=== PATIENT | male | born 1975 | race Caucasian/White ===

== ENCOUNTER 2025-03-24 14:05 | Emergency (ER) | payer MEDICAID ==
[~2025-03-24] VITALS: Ht 167.6 cm; Wt 72.0 kg
[2025-03-24 14:09] VITALS: O2SAT 97
[2025-03-24] MEDS: ACETAMINOPHEN 500MG TABLET PO ONE (15:20)
[2025-03-24] MEDS: ONDANSETRON HCL 4MG/2ML INJ IV ONE (15:21)
[2025-03-24] MEDS: PIPERACILLIN/TAZO 3.375G/50ML 50 ML IV ONE (15:21)
[2025-03-24] MEDS: MORPHINE SULFATE 4 MG/ML INJ (FOR IV/IM USE) IV ONE (15:21)
[2025-03-24] MEDS: SODIUM CHLORIDE 0.9% (SEPSIS BOLUS) IV ONE (15:22)
[2025-03-24 15:32] LABS: BASOPHILS % 0.4 % (0.0-2.0); EOSINOPHILS % 0.2 % (0.0-5.0); HEMATOCRIT. 40.8 % (42.0-52.0); HEMOGLOBIN. 13.8 g/dL (14.0-18.0); LYMPHOCYTES % 13.6 % (20.0-50.0); MEAN PLATELET VOLUME 8.9 fl (7.4-10.4); MONOCYTES % 7.4 % (2.0-8.0); NEUTROPHILS % 78.4 % (40.0-76.0); PLATELET 424 x1000/uL (130-400); RED BLOOD CELL COUNT 4.77 mill/uL (4.7-6.1); RED CELL DISTRIBUTION WIDTH 12.8 % (11.6-14.6)
[2025-03-24 15:40] LABS: CREATININE 0.7 mg/dL (0.6-1.3); UREA NITROGEN BLOOD 12 mg/dL (9-23)
[2025-03-24] MEDS: VANCOMYCIN 1G PREMIX 200 ML IV ONE (15:56)
[2025-03-24 16:59] VITALS: TEMP 36.9
[2025-03-24] MEDS: IOHEXOL-300 100 ML BOTTLE ONE (18:38)
[2025-03-24] MEDS ORDERED: SULF1TAB48 MT (19:37)
[2025-03-24] MEDS ORDERED: CEPH500T MT (19:37)
[2025-03-24] MEDS ORDERED: TOPUD PO (19:38)
[2025-03-24] MEDS ORDERED: IBUP-2028 MT (19:38)
[2025-03-24 20:01] VITALS: BP 116/75; PULSE 100; RESP 16; O2SAT 100
== END 2025-03-24 20:10 | disposition home or self-care (01) ==
LOC: ER 14:05
DX: S31.815A Open bite of right buttock, initial encounter (principal); F15.90 Other stimulant use, unspecified, uncomplicated; W57.XXXA Bitten or stung by nonvenomous insect and other nonvenomous arthropods, initial encounter; Y93.89 Activity, other specified; Y92.89 Other specified places as the place of occurrence of the external cause; Y99.8 Other external cause status
CPT/HCPCS: 80048; 83605; 85025; 87040; 36415; 84145; 74177; 96367; 96365; 96366; 96375; 99285; Q9967; J2405; J2543; J3373; J2270; J7030; Z7610 ×3